=== PATIENT | male | born 1965 | race Caucasian/White ===

== ENCOUNTER → 2017-06-16 | Day surgery (SDC) | payer OTHER ==
--- NOTE | 2017-06-15 08:49 | History and Physical: Surg Cnt ---
History & Physical Date Jun 15, 2017. Chief Complaint fluid both ear, hearing loss History of Present Illness The patient is a 51 year old male with complaints of chronic otitis media Additional History Hepatic Disease: No Endocrine Disorder: No Kidney Disease: No Hypertension: No Heart Disease: No Bleeding Tendencies: No Infectious Diseases: No Allergies Coded Allergies: Penicillins (Verified Allergy, Mild, 09/05/09) RASH Home Medications Miscellaneous Medications None (Patient States No Home Meds) Physical Examination Skin: warm/dry, no rash Eyes: normal inspection, EOMI, sclerae normal ENT: normal ENT inspection, pharynx normal Head: normocephalic, atraumatic Neck: supple, no adenopathy, trachea midline Respiratory/Chest: lungs clear, normal breath sounds, no respiratory distress Cardiovascular: regular rate, rhythm, no edema, no murmur Abdomen / GI: normal bowel sounds, non tender Back: normal inspection Extremities: normal inspection, normal range of motion Neurologic/Psych: no motor/sensory deficits, alert, normal reflexes, oriented x 3 Diagnosis chronic otitis media Plan of Treatment BMT
[2017-06-15 13:46] VITALS: Ht 177.8 cm; Wt 104.5 kg
[~2017-06-16] VITALS: Ht 177.8 cm; Wt 104.5 kg
[~2017-06-16] MED LIST: ATROPINE SULFATE 0.1 MG/ML 5ML SYR IV PRN; CPRDOTS OT; DEXAMETHASONE SOD INJ 4 MG/ML VIAL IV PRN; DOXA4TAB5 PO; EpHEDrine SULFATE INJ 50 MG/ML AMP IV PRN; FENTANYL CITRATE INJ 50 MCG/1 ML 2 ML VIAL IV PRN; FENTANYL CITRATE INJ 50 MCG/1 ML 2 ML VIAL ONE; HYDROCODONE/ACETAMOPHEN 5/325MG TAB PO PRN; KETOROLAC TROMETHAMINE 30 MG/ML VIAL IV. PRN; LABETALOL HCL IV 5 MG/ML 20ML IV PRN; LACTATED RINGER'S 1000ML 1,000 ML IV SCH; LIDOCAINE HCL 2% 2 ML VIAL (20MG/ML) ONE; METOCLOPRAMIDE HCL INJ 5 MG/ML 2 ML VIAL IV PRN; MIDAZOLAM HCL 1 MG/ML 2ML VIAL ONE; MULT-506 PO; MoRPHine SULFATE 10 MG/ML CARP/VIAL IV PRN; OFLOXACIN 0.3% OP SOLN 5 ML BTL ONE; ONDANSETRON INJ 2 MG/ML 2 ML VIAL IV PRN; ONDANSETRON INJ 2 MG/ML 2 ML VIAL ONE; PHENYLEPHRINE 100MCG/ML 5ML SYR IV PRN; PROPOFOL IV EMULSION 10 MG/ML 20 ML VIAL IV ONE; SODIUM CHLORIDE 0.9% 1000ML 1,000 ML IV SCH; TETRACAINE HCL (OPHTH) 60 DROPS/4 ML BTL OP ONE
--- NOTE | 2017-06-16 06:59 | History & Physical Bridge Note ---
H&P Re-Evaluation Bridge Note: I have examined the patient, reviewed the History & Physical and in the interval since the performance of the History & Physical I have noted the following changes of clinical significance: No changes noted
--- NOTE | 2017-06-16 08:19 | Discharge Instructions-SurgCtr ---
Discharge Instructions Date of Service Jun 16, 2017. Visit Reason for Visit: Chronic O.m.;Pre-Op Discharge Discharge Diagnosis / Problem: DAREN Discharge Goals Goal(s): Improve function Activity Recommendations Activity Limitations: resume your previous activity Anesthesia . Post Anesthesia Instructions: If you have had General Anesthesia or IV Sedation: * Do not drive today. * Resume driving when surgeon permits. * Do not make important decisions or sign legal documents today. * Call surgeon for: 1. Temperature elevations greater than 101 degrees F. 2. Uncontrollable pain. 3. Excessive bleeding. 4. Persistent nausea and vomiting. 5. Medication intolerance (nausea, vomiting or rash). * For nausea and vomiting use only clear liquids such as: tea, soda, bouillon until nausea subsides, then gradually increase diet as tolerated. * If you have any concerns or questions, call your surgeon's office. If physician is unavailable and it is an emergency, call 911 or go to the nearest emergency room. . Instructions / Follow-Up Instructions / Follow-Up ACTIVITY RECOMMENDATIONS: * Take it easy today. * Return to regular activity tomorrow. OVER THE COUNTER MEDICATIONS: * You may use Tylenol for pain * Avoid aspirin or aspirin containing products, e.g. as they may increase bleeding. DIET: Resume previous diet RETURN TO SCHOOL/WORK: May return to normal activities tomorrow. SPECIAL CARE INSTRUCTIONS: * Drainage is not unusual during the first few days after placement of tubes. The drainage may be bloody. If it is foul smelling or very thick, please notify the doctor. Call or cell phone . * Keep water out of the ears when shampooing or bathing. Use cotton balls covered with Vaseline or "Macks" ear plugs. * Call physician if increased pain, fever over 101 degrees F. or any problems. FOLLOW UP VISIT: Follow-up Visit with Dr. Hernandez in 2 weeks. Please call to schedule. Diet Recommendations Home Diet: no limitations Pending Studies Studies pending at discharge: no Medical Emergencies . Who to Call and When: Medical Emergencies: If at any time you feel your situation is an emergency, please call 911 immediately. . Non-Emergent Contact Non-Emergency issues call your: Primary Care Provider . . "Provider Documentation" section prepared by Natali ROSADO Drug Monitoring Program Search Results: no issues identified
--- NOTE | 2017-06-16 08:21 | History & Physical Bridge Note ---
H&P Re-Evaluation Bridge Note: I have examined the patient, reviewed the History & Physical and in the interval since the performance of the History & Physical I have noted the following changes of clinical significance: Remove old tube right
--- NOTE | 2017-06-16 09:12 | OPERATIVE REPORT ---
DATE OF OPERATION: 06/16/2017 PREOPERATIVE DIAGNOSIS: Chronic otitis media. POSTOPERATIVE DIAGNOSIS: Same. PROCEDURE: BMT with removal of old tube from the right ear. SURGEON: Dr. Hernandez. ANESTHESIA: General with LMA. COMPLICATIONS: None. BLOOD LOSS: Minimal. HISTORY OF PRESENT ILLNESS: A 51-year-old gentleman with a long history of chronic otitis media. The old T-tube in the right ear was blocked with cerumen and had to be removed prior to insertion of new T-tubes. DESCRIPTION OF PROCEDURE: The patient was brought to the operating room and placed supine position. General anesthesia was induced. Right ear was visualized and irrigated with peroxide, cleaned of cerumen. A myringotomy incision was made anterior inferiorly. Thick fluid was evacuated from middle ear space and a T-tube was inserted. Cortisporin drops were placed. Left tympanostomy performed similar manner. The patient tolerated the procedure well and was taken to the recovery area in satisfactory condition. I attest to the content of the Intraoperative Record and any orders documented therein. Any exception s are noted below.
--- NOTE | 2017-06-16 09:47 | Anesthesia Progress Nt - [facility] ---
Anesthesia Post Op Note Date & Time Jun 16, 2017 at 09:47 Vital Signs Pain Intensity: 0 Vital Signs Past 12 Hours Date Time Temp Pulse Resp B/P (MAP) Pulse Ox O2 Delivery O2 Flow Rate FiO2 06/16/17 09:22 36.7 62 16 118/68 (85) 94 Room Air 06/16/17 09:20 106/70 06/16/17 09:18 36.5 94 Room Air 06/16/17 09:17 69 16 95 06/16/17 09:17 70 16 06/16/17 09:16 74 14 06/16/17 09:16 73 14 93 06/16/17 09:15 105/69 06/16/17 09:11 76 13 93 06/16/17 09:11 78 13 06/16/17 09:10 113/76 06/16/17 09:06 75 16 06/16/17 09:06 75 16 93 06/16/17 09:05 112/74 06/16/17 09:04 66 12 06/16/17 09:04 64 12 96 06/16/17 09:00 107/72 06/16/17 08:59 66 15 98 06/16/17 08:59 68 15 06/16/17 08:58 72 17 06/16/17 08:58 72 17 98 06/16/17 08:55 115/74 06/16/17 08:53 74 13 06/16/17 08:53 72 13 98 06/16/17 08:50 104/69 06/16/17 08:49 117/74 06/16/17 08:48 78 30 98 06/16/17 08:48 71 30 06/16/17 08:48 36.6 75 16 117/74 98 Mask 6 06/16/17 07:15 36.5 75 16 123/83 (96) 95 Room Air Notes Mental Status: alert / awake / arousable, participated in evaluation Pt Amnestic to Procedure: Yes Nausea / Vomiting: adequately controlled Pain: adequately controlled Airway Patency, RR, SpO2: stable & adequate BP & HR: stable & adequate Hydration State: stable & adequate Anesthetic Complications: no major complications apparent
[2017-06-16 09:48] VITALS: BP 131/78; PULSE 60; O2SAT 96
== END | disposition home or self-care (01) ==
LOC: X.SURG 06:58
PROVIDERS: ATTEND Otolaryngology
DX: H65.493 Other chronic nonsuppurative otitis media, bilateral (principal)